=== PATIENT | male | born 1955 | race Caucasian/White ===

== ENCOUNTER → 2020-09-23 11:40 | Outpatient (REF) | payer MEDICARE, SELFPAY | LOC: ANHLAB 11:40 | PROVIDERS: PCP Family Medicine; Visit Provider Nurse Practitioner | DX: C44.629 Squamous cell carcinoma of skin of left upper limb, including shoulder (principal) | CPT/HCPCS: 88305 ==

== ENCOUNTER → 2021-08-25 10:44 | Outpatient (REF) | payer MEDICARE, SELFPAY | LOC: ANHLAB 10:44 | PROVIDERS: PCP Family Medicine; Visit Provider Nurse Practitioner | DX: D22.71 Melanocytic nevi of right lower limb, including hip (principal) | CPT/HCPCS: 88305 ==

== ENCOUNTER 2022-08-31 08:00 | Outpatient (NON) | payer MEDICARE, SELFPAY | END 2022-08-31 08:01 | disposition home or self-care (01) | LOC: ANHLAB 09-01 11:35 | PROVIDERS: PCP Family Medicine; Visit Provider Nurse Practitioner | DX: D22.5 Melanocytic nevi of trunk (principal) | CPT/HCPCS: 88305 ==

== ENCOUNTER 2022-11-04 08:00 | Outpatient (NON) | payer MEDICARE, SELFPAY | END 2022-11-04 08:01 | disposition home or self-care (01) | LOC: ANHLAB 11-05 11:59 | PROVIDERS: PCP Family Medicine; Visit Provider Nurse Practitioner | DX: D49.2 Neoplasm of unspecified behavior of bone, soft tissue, and skin (principal) | CPT/HCPCS: 88305 ==

== ENCOUNTER 2023-03-08 13:27 | Outpatient (NON) | payer MEDICARE, SELFPAY | END 2023-03-08 13:28 | disposition home or self-care (01) | LOC: ANHLAB 03-09 13:29 | PROVIDERS: PCP Family Medicine; Visit Provider Nurse Practitioner | DX: D48.5 Neoplasm of uncertain behavior of skin (principal) | CPT/HCPCS: 88305 ==